=== PATIENT | male | born 1960 | race African-American/Black ===

== ENCOUNTER 2017-03-13 11:55 | Emergency (ER) | payer BC ==
[~2017-03-13] VITALS: Ht 160 cm; Wt 63.5 kg
[~2017-03-13 11:55] MED LIST: ALBUTEROL SULF8.5 GM INH; LEVAQUIN500 MG ORAL; PREDNISONE20 MG ORAL
[2017-03-13] MEDS ORDERED: SIMVASTATIN20 MG ORAL (12:17)
[2017-03-13] MEDS ORDERED: LISINOPRIL30 MG ORAL (12:17)
[2017-03-13] MEDS ORDERED: AMLODIPINE BESY10 MG ORAL (12:17)
[2017-03-13] MEDS ORDERED: HYDROCHLOROTHIA25 MG ORAL (12:17)
[2017-03-13] MEDS ORDERED: Aspirin Baby 81mg ORAL ONE (12:30)
[2017-03-13 12:49] VITALS: BP 116/69
[2017-03-13 12:58] LABS: BASOPHILS % (AUTO) 1.5 % (0.0-2.0); EOSINOPHILS % (AUTO) 1.5 % (0.0-3.0); LYMPHOCYTES % (AUTO) 31.2 % (20.0-45.0); MEAN CORPUSCULAR HGB CONC 32.2 G/DL (32.0-36.0); MEAN CORPUSCULAR VOLUME 90 FL (80-99); MEAN PLATELET VOLUME 6.5 FL (6.5-10.1); MONOCYTES % (AUTO) 8.8 % (1.0-10.0); PLATELET COUNT 178 K/UL (150-450); RED BLOOD COUNT 4.71 M/UL (4.70-6.10); RED CELL DISTRIBUTION WIDTH 12.5 % (11.6-14.8); WHITE BLOOD COUNT 5.4 K/UL (4.8-10.8)
[2017-03-13 13:07] LABS: INR 0.9 (0.9-1.1); PROTHROMBIN TIME 9.6 SEC (9.30-11.50)
[2017-03-13 13:14] LABS: TROPONIN I < 0.30 ng/mL (<=0.30)
[2017-03-13 13:20] LABS: ALANINE AMINOTRANSFERASE 38 U/L (3-41); ALBUMIN/GLOBULIN RATIO 1.4 (1.0-2.7); ANION GAP 18 (5-15); ASPARTATE AMINO TRANSFERASE 34 U/L (5-40); CALCIUM 9.3 mg/dL (8.6-10.2); CARBON DIOXIDE 25 mEQ/L (20-30); CHLORIDE 96 mEQ/L (98-107); CREATININE 1.3 mg/dL (0.7-1.2); GLOMERULAR FILTRATION RATE > 60 mL/min (>60); HEMOLYSIS 8; POTASSIUM 4.1 mEQ/L (3.4-4.9); SODIUM 139 mEQ/L (135-145); TOTAL PROTEIN 7.7 g/dL (6.6-8.7)
[2017-03-13 13:30] LABS: CKMB < 1.5 ng/mL (< 6.7)
[2017-03-13 13:32] LABS: APPEARANCE,URINE CLEAR; KETONES,URINE NEGATIVE (NEGATIVE); LEUKOCYTE ESTERASE ,URINE NEGATIVE (NEGATIVE); NITRITE,URINE NEGATIVE (NEGATIVE); PH,URINE 5 (4.5-8.0); PROTEIN,URINE NEGATIVE (NEGATIVE); UROBILINOGEN,URINE NORMAL MG/DL (0.0-1.0)
[2017-03-13] MEDS ORDERED: Lidocaine 2% Visc 15ml soln ORAL ONE (14:30)
--- NOTE | 2017-03-13 14:38 | Emergency Room Report ---
History of Present Illness General Chief Complaint: Chest Pain Source: Patient Present Illness HPI This patient complains of mid chest pain for the past few days. He states that the pain has been constant. He denies nausea or vomiting. He denies fever or chills. He denies cough or congestion. He denies abdominal pain. He has no other complaints. Allergies: Coded Allergies: NO KNOWN DRUG ALLERGIES (Unverified Allergy, Unknown, 10/26/14) Patient History Past Medical History: see triage record, HTN Social History: Denies: alcohol use, drug use, smoking Reviewed Nursing Documentation: PMH: Agreed, PSxH: Agreed Nursing Documentation-PMH Past Medical History: No History, Except For Hx Hypertension: Yes Review of Systems All Other Systems: negative except mentioned in HPI Physical Exam Vital Signs Date Time Temp Pulse Resp B/P Pulse Ox O2 Delivery O2 Flow Rate FiO2 03/13/17 12:05 98.2 73 14 121/92 99 Room Air Sp02 EP Interpretation: reviewed, normal General Appearance: no apparent distress, alert, GCS 15, non-toxic Head: normocephalic, atraumatic Eyes: bilateral eye PERRL, bilateral eye normal inspection ENT: hearing grossly normal, normal pharynx, no angioedema, normal voice Neck: full range of motion, supple/symm/no masses Respiratory: chest non-tender, lungs clear, normal breath sounds, speaking full sentences Cardiovascular #1: regular rate, rhythm, no edema Gastrointestinal: normal bowel sounds, non tender, soft, non-distended, no guarding, no rebound Rectal: deferred Musculoskeletal: back normal, gait/station normal, normal range of motion, non- tender Neurologic: alert, oriented x3, responsive, motor strength/tone normal, sensory intact, speech normal Psychiatric: judgement/insight normal, memory normal, mood/affect normal, no suicidal/homicidal ideation Skin: normal color, no rash, warm/dry, well hydrated Medical Decision Making Diagnostic Impression: Primary Impression: Chest pain ER Course This patient has nonspecific chest pain. Given the length of symptoms, this workup is very reassuring with negative cardiac enzymes, normal EKG, and normal chest x-ray. The patient is low risk and his symptoms are atypical for acute coronary syndrome. I have very low suspicion for PE, aortic dissection or pneumothorax based on history/physical, laboratory and radiologic workup. I will go ahead and treat the patient for acid reflux. The patient was given close return precautions and followup instructions. Labs Test 03/13/17 12:35 03/13/17 12:56 White Blood Count 5.4 K/UL (4.8-10.8) Red Blood Count 4.71 M/UL (4.70-6.10) Hemoglobin 13.7 G/DL (14.2-18.0) Hematocrit 42.5 % (42.0-52.0) Mean Corpuscular Volume 90 FL (80-99) Mean Corpuscular Hemoglobin 29.0 PG (27.0-31.0) Mean Corpuscular Hemoglobin Concent 32.2 G/DL (32.0-36.0) Red Cell Distribution Width 12.5 % (11.6-14.8) Platelet Count 178 K/UL (150-450) Mean Platelet Volume 6.5 FL (6.5-10.1) Neutrophils (%) (Auto) 57.0 % (45.0-75.0) Lymphocytes (%) (Auto) 31.2 % (20.0-45.0) Monocytes (%) (Auto) 8.8 % (1.0-10.0) Eosinophils (%) (Auto) 1.5 % (0.0-3.0) Basophils (%) (Auto) 1.5 % (0.0-2.0) Prothrombin Time 9.6 SEC (9.30-11.50) Prothromb Time International Ratio 0.9 (0.9-1.1) Activated Partial Thromboplast Time 26 SEC (23-33) Sodium Level 139 mEQ/L (135-145) Potassium Level 4.1 mEQ/L (3.4-4.9) Chloride Level 96 mEQ/L (98-107) Carbon Dioxide Level 25 mEQ/L (20-30) Anion Gap 18 (5-15) Blood Urea Nitrogen 28 mg/dL (7-23) Creatinine 1.3 mg/dL (0.7-1.2) Estimat Glomerular Filtration Rate > 60 mL/min (>60) Glucose Level 81 mg/dL (74-106) Calcium Level 9.3 mg/dL (8.6-10.2) Total Bilirubin 0.3 mg/dL (0.0-1.2) Aspartate Amino Transf (AST/SGOT) 34 U/L (5-40) Alanine Aminotransferase (ALT/SGPT) 38 U/L (3-41) Alkaline Phosphatase 47 U/L (40-129) Total Creatine Kinase 69 U/L (38-174) Creatine Kinase MB < 1.5 ng/mL (< 6.7) Creatine Kinase MB Relative Index 2.1 Troponin I < 0.30 ng/mL (<=0.30) Total Protein 7.7 g/dL (6.6-8.7) Albumin 4.5 g/dL (3.5-5.2) Globulin 3.2 g/dL Albumin/Globulin Ratio 1.4 (1.0-2.7) Urine Color Pale yellow Urine Appearance Clear Urine pH 5 (4.5-8.0) Urine Specific [place] 1.015 (1.005-1.035) Urine Protein Negative (NEGATIVE) Urine Glucose (UA) Negative (NEGATIVE) Urine Ketones Negative (NEGATIVE) Urine Occult Blood Negative (NEGATIVE) Urine Nitrite Negative (NEGATIVE) Urine Bilirubin Negative (NEGATIVE) Urine Urobilinogen Normal MG/DL (0.0-1.0) Urine Leukocyte Esterase Negative (NEGATIVE) Urine Opiates Screen Negative (NEGATIVE) Urine Barbiturates Screen Negative (NEGATIVE) Phencyclidine (PCP) Screen Negative (NEGATIVE) Urine Amphetamines Screen Negative (NEGATIVE) Urine Benzodiazepines Screen Negative (NEGATIVE) Urine Cocaine Screen Negative (NEGATIVE) Urine Marijuana (THC) Screen Negative (NEGATIVE) EKG Diagnostic Results Rate: normal Rhythm: NSR ST Segments: no acute changes ASA given to the pt in ED: Yes Rhythm Strip Diag. Results EP Interpretation: yes Rate: 60's Rhythm: NSR, no PVC's, no ectopy Chest X-Ray Diagnostic Results Chest X-Ray Ordered: Yes # of Views/Limited/Complete: 1 View Interpretation: no consolidation, no effusion, no pneumothorax, no acute cardiopulmonary disease Indication: Chest Pain Impression: No acute disease Date Electronically Signed: Mar 13, 2017 Time Electronically Signed: 14:38 Interpreting ER Physician: Fabricio Last Vital Signs Date Time Temp Pulse Resp B/P Pulse Ox O2 Delivery O2 Flow Rate FiO2 03/13/17 12:49 98.2 69 12 116/69 100 Room Air Status: improved Disposition: HOME, SELF-CARE Condition: Improved Patient Instructions: Nonspecific Chest Pain AFIA ASKEW D.O. Mar 13, 2017 14:38
[2017-03-13 14:39] VITALS: BP 119/97
[2017-03-13] MEDS ORDERED: RANITIDINE HCL150 MG ORAL (14:39)
[2017-03-13 15:00] VITALS: BP 119/97
== END 2017-03-13 15:00 | disposition home or self-care (01) ==
LOC: EMR 12:29
DX: R07.89 Other chest pain (principal); I10 Essential (primary) hypertension
CPT/HCPCS: 36415; 71010; 80053; 80300; 81003; 82550; 82553; 84484; 85025; 85610; 85730; 93005; 96374

== ENCOUNTER 2017-12-18 11:01 | Emergency (ER) | payer BC ==
[~2017-12-18] VITALS: Ht 172.7 cm; Wt 70.3 kg
[~2017-12-18 11:01] MED LIST changes: +AMLODIPINE BESY10 MG ORAL; +HYDROCHLOROTHIA25 MG ORAL; +LISINOPRIL30 MG ORAL; +RANITIDINE HCL150 MG ORAL; +SIMVASTATIN20 MG ORAL
[2017-12-18 11:20] VITALS: BP 132/69
[2017-12-18 11:52] LABS: BASOPHILS % (AUTO) 0.5 % (0.0-2.0); EOSINOPHILS % (AUTO) 1.5 % (0.0-3.0); HEMATOCRIT 43.6 % (42.0-52.0); HEMOGLOBIN 14.2 G/DL (14.2-18.0); LYMPHOCYTES % (AUTO) 22.6 % (20.0-45.0); MEAN CORPUSCULAR VOLUME 87 FL (80-99); MONOCYTES % (AUTO) 7.9 % (1.0-10.0); NEUTROPHILS % (AUTO) 67.5 % (45.0-75.0); PLATELET COUNT 216 K/UL (150-450); RED BLOOD COUNT 5.01 M/UL (4.70-6.10); RED CELL DISTRIBUTION WIDTH 13.2 % (11.6-14.8); WHITE BLOOD COUNT 5.8 K/UL (4.8-10.8)
[2017-12-18 11:54] LABS: APPEARANCE,URINE CLEAR; BILIRUBIN, URINE NEGATIVE (NEGATIVE); COLOR,URINE PALE YELLOW; GLUCOSE, URINE (UA) NEGATIVE (NEGATIVE); KETONES,URINE NEGATIVE (NEGATIVE); LEUKOCYTE ESTERASE ,URINE NEGATIVE (NEGATIVE); NITRITE,URINE NEGATIVE (NEGATIVE); PH,URINE 6 (4.5-8.0); PROTEIN,URINE NEGATIVE (NEGATIVE); UROBILINOGEN,URINE NORMAL MG/DL (0.0-1.0)
[2017-12-18 11:59] LABS: ANION GAP 9 mmol/L (5-15); BLOOD UREA NITROGEN 18 mg/dL (7-18); CALCIUM 9.4 MG/DL (8.5-10.1); CARBON DIOXIDE 29 MMOL/L (21-32); CHLORIDE 104 MMOL/L (98-107); CREATININE 0.9 MG/DL (0.55-1.30); POTASSIUM 3.9 MMOL/L (3.5-5.1); SODIUM 141 MMOL/L (136-145)
[2017-12-18 12:12] LABS: ALANINE AMINOTRANSFERASE 31 U/L (12-78); ALBUMIN 3.9 G/DL (3.4-5.0); ALBUMIN/GLOBULIN RATIO 0.9 (1.0-2.7); ALKALINE PHOSPHATASE < 10 U/L (46-116); ASPARTATE AMINO TRANSFERASE 20 U/L (15-37); BILIRUBIN,TOTAL 0.5 MG/DL (0.2-1.0)
[2017-12-18 12:55] VITALS: BP 132/99
--- NOTE | 2017-12-18 13:22 | Emergency Room Report ---
History of Present Illness General Chief Complaint: Chest Pain Source: Patient Present Illness HPI 57-year-old male, history of hypertension, p/w chest pain for 2 days. Chest pain started while at rest. Localized to substernal area, no radiation to back or other areas, sharp in nature, gradual in onset, 2-3 episodes. no SOB. Denies palpitations, diaphoresis, n/v. Denies fever, chills, cough, abd pain. Denies trauma. Last stress test was 2 years ago which was negative. Denies smoking, no family history of cardiac disease at a young age. Allergies: Coded Allergies: NO KNOWN DRUG ALLERGIES (Unverified Allergy, Unknown, 10/26/14) Patient History Past Medical History: see triage record Past Surgical History: none Pertinent Family History: none Reviewed Nursing Documentation: PMH: Agreed; PSxH: Agreed Nursing Documentation-PMH Hx Hypertension: Yes Review of Systems All Other Systems: negative except mentioned in HPI Physical Exam Vital Signs Date Time Temp Pulse Resp B/P (MAP) Pulse Ox O2 Delivery O2 Flow Rate FiO2 12/18/17 11:14 98.2 67 18 144/84 100 Room Air 98.2 Sp02 EP Interpretation: reviewed, normal General Appearance: normal inspection, well appearing, no apparent distress, alert, GCS 15, non-toxic Head: normocephalic, atraumatic Eyes: bilateral eye normal inspection, bilateral eye PERRL, bilateral eye EOMI ENT: normal ENT inspection, normal pharynx, normal voice, moist mucus membranes Neck: normal inspection, full range of motion, supple Respiratory: normal inspection, lungs clear, normal breath sounds, no respiratory distress, no retraction, no wheezing, speaking full sentences, chest symmetrical Cardiovascular #1: normal inspection, regular rate, rhythm, no edema, normal capillary refill Cardiovascular #2: 2+ radial (R), 2+ radial (L) Gastrointestinal: normal inspection, non tender, soft, non-distended, no guarding Genitourinary: no CVA tenderness Musculoskeletal: normal inspection, back normal, normal range of motion, non- tender Neurologic: normal inspection, alert, oriented x3, responsive, motor strength/ tone normal, sensory intact, normal gait, speech normal Psychiatric: normal inspection, judgement/insight normal, memory normal Skin: normal inspection, normal color, no rash, warm/dry, well hydrated, normal turgor Medical Decision Making Diagnostic Impression: Primary Impression: Chest pain ER Course 57-year-old male with chest pain Currently states chest pain-free DDX: ACS vs. CHF vs. pneumonia vs. gastritis/GERD vs. pneumothorax versus musculoskeletal Plan: IV access, obtain labs including troponin, EKG, CXR Patient took aspirin this morning ER course: Labs: troponin negative Patient remained chest pain free during ED stay. Disposition: Patient will be discharged to home. Strict precautions discussed with patient on when to emergently return to the ED : this includes worsening/severe chest pain, palpitations, shortness of breath, syncopal episodes, fever or chills, which may indicate severe illness. Patient verbalized understanding. Patient instructed to follow up with their PMD within the next 2 days. Patient also instructed to follow up with a lockstitch sleeve maker within 2 days for possible outpatient stress test. Patient agrees with plan. Please note that this Emergency Department Report was dictated using Portal Solutionsemployment law specialist technology software, occasionally this can lead to erroneous entry secondary to interpretation by the dictation equipment. EKG Diagnostic Results EP Interpretation: Yes Rate: normal Rhythm: NSR ST Segments: No acute changes ASA given to patient: y Rhythm Strip EP Interpretation: Yes Rate: 60 Rhythm: NSR, no PVCs, no ectopy Chest X-ray CXR: Ordered: Yes 1 view Indication: Chest pain EP interpretation: Yes Interpretation: No consolidation, no effusion, no PTX, no acute cardiopulmonary disease Impression: No acute disease Electronically signed by Meaghan Shaver MD Last Vital Signs Date Time Temp Pulse Resp B/P (MAP) Pulse Ox O2 Delivery O2 Flow Rate FiO2 12/18/17 12:55 98.2 69 18 132/99 98 Room Air 98.2 Disposition: HOME, SELF-CARE Condition: Improved Referrals: NOT CHOSEN IPA/,REFERRING (PCP) Patient Instructions: Nonspecific Chest Pain Additional Instructions: PLEASE SEE YOUR DOCTOR IN 1 WEEK Meaghan Shaver M.D. Dec 18, 2017 13:22
--- NOTE | 2017-12-18 15:51 | Diagnostic Imaging Report ---
Indication: Chest pain Technique: One view of the chest Comparison: 03/13/2017 Findings: Lungs and pleural spaces are clear. Heart size is normal. No significant interim change Impression: No acute process
--- NOTE | 2017-12-21 19:28 | Cardiology Report ---
APPROVED REPORT EKG Measurement Heart [id number] Normal sinus rhythm ST elevation, probably due to early repolarization Borderline ECG
== END 2017-12-18 12:55 | disposition home or self-care (01) ==
LOC: EMR 11:35
DX: R07.9 Chest pain, unspecified (principal); I10 Essential (primary) hypertension
CPT/HCPCS: 36415; 71045; 80053; 81003; 83880; 84484; 85025; 93005; 99283

== ENCOUNTER 2018-03-04 10:50 | Emergency (ER) | payer BC ==
[~2018-03-04] VITALS: Ht 170.2 cm; Wt 66.7 kg
[2018-03-04 11:39] VITALS: BP 118/77
[2018-03-04] MEDS ORDERED: Isovue-300 100ml vial INJ PRN (11:45)
[2018-03-04] MEDS ORDERED: Clindamycin 600mg 50 ML IVPB ONE (11:45)
[2018-03-04 12:46] LABS: BASOPHILS % (AUTO) 0.8 % (0.0-2.0); EOSINOPHILS % (AUTO) 2.2 % (0.0-3.0); HEMATOCRIT 36.9 % (42.0-52.0); HEMOGLOBIN 12.5 G/DL (14.2-18.0); LYMPHOCYTES % (AUTO) 21.1 % (20.0-45.0); MEAN CORPUSCULAR VOLUME 87 FL (80-99); MONOCYTES % (AUTO) 9.1 % (1.0-10.0); NEUTROPHILS % (AUTO) 66.7 % (45.0-75.0); PLATELET COUNT 205 K/UL (150-450); RED BLOOD COUNT 4.24 M/UL (4.70-6.10); RED CELL DISTRIBUTION WIDTH 12.5 % (11.6-14.8); WHITE BLOOD COUNT 5.9 K/UL (4.8-10.8)
[2018-03-04 13:10] LABS: ANION GAP 5 mmol/L (5-15); BLOOD UREA NITROGEN 21 mg/dL (7-18); CALCIUM 9.8 MG/DL (8.5-10.1); CARBON DIOXIDE 29 MMOL/L (21-32); CHLORIDE 105 MMOL/L (98-107); CREATININE 0.9 MG/DL (0.55-1.30); POTASSIUM 3.7 MMOL/L (3.5-5.1); SODIUM 138 MMOL/L (136-145)
--- NOTE | 2018-03-04 13:25 | Emergency Room Report ---
History of Present Illness General Chief Complaint: Skin Rash/Abscess Source: Patient (GABRIELLA ASKEWJolie Eric D.O.) Present Illness HPI This patient states that he noticed this morning when he woke up his right cheek was swollen. He admits that he has very bad cavities and dental issues. Denies pain. He denies fever or chills. He denies headache or neck pain. He has no other complaints. (AZARAFIA Eric D.O.) Allergies: Coded Allergies: NO KNOWN DRUG ALLERGIES (Unverified Allergy, Unknown, 10/26/14) Patient History Past Medical History: see triage record, HTN, other - HLP Social History: Denies: smoking, alcohol use, drug use Reviewed Nursing Documentation: PMH: Agreed; PSxH: Agreed (TARABusterAFIA D.O. ) Nursing Documentation-PMH Past Medical History: No History, Except For Hx Hypertension: Yes (AFIA ASKEW D.O.) Review of Systems All Other Systems: negative except mentioned in HPI (AFIA ASKEW D.O.) Physical Exam Vital Signs Date Time Temp Pulse Resp B/P (MAP) Pulse Ox O2 Delivery O2 Flow Rate FiO2 03/04/18 10:58 87.1 83 16 118/77 97 Room Air 87.1 Sp02 EP Interpretation: reviewed, normal General Appearance: no apparent distress, alert, GCS 15, non-toxic Head: normocephalic, atraumatic Eyes: bilateral eye normal inspection, bilateral eye PERRL ENT: hearing grossly normal, normal pharynx, no angioedema, normal voice, uvula midline, other - R. cheek w/ a quarter sized area of swelling. No fluctuance palpated. Neck: full range of motion, supple/symm/no masses Respiratory: chest non-tender, lungs clear, normal breath sounds, speaking full sentences Cardiovascular #1: regular rate, rhythm, no edema Gastrointestinal: normal bowel sounds, non tender, soft, non-distended, no guarding, no rebound Rectal: deferred Musculoskeletal: back normal, gait/station normal, normal range of motion, non- tender Neurologic: alert, oriented x3, responsive, motor strength/tone normal, sensory intact, speech normal Psychiatric: judgement/insight normal, memory normal, mood/affect normal, no suicidal/homicidal ideation Skin: normal color, no rash, warm/dry, well hydrated (AFIA ASKEW D.O.) Medical Decision Making PA Attestation Dr. Askew is my supervising Physician whom patient management has been discussed with. (Edd MalikASamantha) Diagnostic Impression: Primary Impression: Cellulitis of buccal space of mouth Additional Impression: Periodontal disease Laboratory Tests Test 03/04/18 11:30 White Blood Count 5.9 K/UL (4.8-10.8) Red Blood Count 4.24 M/UL (4.70-6.10) L Hemoglobin 12.5 G/DL (14.2-18.0) L Hematocrit 36.9 % (42.0-52.0) L Mean Corpuscular Volume 87 FL (80-99) Mean Corpuscular Hemoglobin 29.6 PG (27.0-31.0) Mean Corpuscular Hemoglobin Concent 34.0 G/DL (32.0-36.0) Red Cell Distribution Width 12.5 % (11.6-14.8) Platelet Count 205 K/UL (150-450) Mean Platelet Volume 6.8 FL (6.5-10.1) Neutrophils (%) (Auto) 66.7 % (45.0-75.0) Lymphocytes (%) (Auto) 21.1 % (20.0-45.0) Monocytes (%) (Auto) 9.1 % (1.0-10.0) Eosinophils (%) (Auto) 2.2 % (0.0-3.0) Basophils (%) (Auto) 0.8 % (0.0-2.0) Sodium Level 138 MMOL/L (136-145) Potassium Level 3.7 MMOL/L (3.5-5.1) Chloride Level 105 MMOL/L (98-107) Carbon Dioxide Level 29 MMOL/L (21-32) Anion Gap 5 mmol/L (5-15) Blood Urea Nitrogen 21 mg/dL (7-18) H Creatinine 0.9 MG/DL (0.55-1.30) Estimate Glomerular Filtration Rate > 60 mL/min (>60) Glucose Level 111 MG/DL (74-106) H Calcium Level 9.8 MG/DL (8.5-10.1) (AFIA ASKEW D.O.) ER Course Patient signed out to me by Dr. Askew. Agree with hx and physical exam. Pt. presents to the ED c/o swelling on right side of cheek. Patient reports history of similar symptoms several months ago that resolved spontaneously without treatment. Reports has not seen dentist recently. Ddx considered but are not limited to cellulitis, abscess, gingivitis, infection , malignancy. Vital signs: are WNL, pt. is afebrile ER COURSE: Reviewed patient lives, no patient WBC's, rest of labs unremarkable. IV clindamycin provide the patient in ER. patient resting comfortably in the, in no acute pain, no acute distress. Maxillofacial CT with contrast performed, Results show no abscess, periodontal disease. Patient OK for outpatient treatment, followup with PCP and dentist. States will report to dentist tomorrow. Copy of report provide to patient. List of dental clinics provided to patient, instructed to followup tomorrow. Follow-up with dentist. follow up with PCP for further treatment and referral. Discuss referral to ENT. DISCHARGE: Rx provided for Clindamycin x7days, take full course of abx. At this time pt is stable for d/c to home. Patient is resting comfortably, in no acute distress, nontoxic appearing, talking without difficulty. Patient to take medications as instructed Will provide with patient care instructions and any necessary prescriptions. Care plan and follow-up instructions provided. Patient instructed to follow-up with primary care provider in 2-3 days. Patient questions asked and answered. Patient reports understanding and agreement to treatment plan. ER precautions given. Patient instructed to return to ER immediately for any new or worsening of symptoms including but not limited to increasing SOB, persistent fever, chest pain, intractable vomiting. - Please note that this Emergency Department Report was dictated using Single Touch Systemskitchen mechanic technology software, occasionally this can lead to erroneous entry secondary to interpretation by the dictation equipment. Labs Test 03/04/18 11:30 White Blood Count 5.9 K/UL (4.8-10.8) Red Blood Count 4.24 M/UL (4.70-6.10) Hemoglobin 12.5 G/DL (14.2-18.0) Hematocrit 36.9 % (42.0-52.0) Mean Corpuscular Volume 87 FL (80-99) Mean Corpuscular Hemoglobin 29.6 PG (27.0-31.0) Mean Corpuscular Hemoglobin Concent 34.0 G/DL (32.0-36.0) Red Cell Distribution Width 12.5 % (11.6-14.8) Platelet Count 205 K/UL (150-450) Mean Platelet Volume 6.8 FL (6.5-10.1) Neutrophils (%) (Auto) 66.7 % (45.0-75.0) Lymphocytes (%) (Auto) 21.1 % (20.0-45.0) Monocytes (%) (Auto) 9.1 % (1.0-10.0) Eosinophils (%) (Auto) 2.2 % (0.0-3.0) Basophils (%) (Auto) 0.8 % (0.0-2.0) Sodium Level 138 MMOL/L (136-145) Potassium Level 3.7 MMOL/L (3.5-5.1) Chloride Level 105 MMOL/L (98-107) Carbon Dioxide Level 29 MMOL/L (21-32) Anion Gap 5 mmol/L (5-15) Blood Urea Nitrogen 21 mg/dL (7-18) Creatinine 0.9 MG/DL (0.55-1.30) Estimat Glomerular Filtration Rate > 60 mL/min (>60) Glucose Level 111 MG/DL (74-106) Calcium Level 9.8 MG/DL (8.5-10.1) (Edd Malik P.A.) CT/MRI/US Diagnostic Results CT/MRI/US Diagnostic Results : Imaging Test Ordered: CT max/facial: (AFIA ASKEW D.O.) CT/MRI/US Diagnostic Results : Imaging Test Ordered: CT maxillofacial CT with contrast Impression Right lateral buccal region soft tissue edema. Given the clinical history, most likely on the basis of cellulitis. 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 Request referral to ENT. Followup with dentist in 1-2 days. Take medications as directed. Take full course of abx. Patient questions asked and answered. ER precautions given, patient instructed to return to ER immediately for any new or worsening of symptoms. AFIA ASKEW D.O. Mar 04, 2018 13:25 Edd Malik Mar 04, 2018 13:39
[2018-03-04 14:25] VITALS: BP 115/76
--- NOTE | 2018-03-04 14:26 | Diagnostic Imaging Report ---
Indication: Right-sided jaw swelling and inflammation Technique: IV administration nonionic contrast. Spiral acquisitions obtained through the Multiplanar reconstructions were generated. Total dose length product 664.83 mGycm. CTDIvol(s) 28.19 mGy. Radiation dose was minimized using automated exposure control Comparison: none Findings: There is edema of the subcutaneous fat and likely of the superficial musculature superficial to the anterior mandible and maxilla on the right. No rim enhancement or fluid collection to suggest abscess demonstrated. There is extensive dental and periodontal disease. There is evidence of multiple prior tooth extractions. There is extensive destruction mandibular and maxillary alveolar ridges. Considerable lucency is seen surrounding the roots of multiple teeth of both the maxilla and the mandible. Multiple dental caries are demonstrated. 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 No cervical mass or adenopathy. The facial soft tissues are unremarkable. The sinuses are clear. Included intracranial structures are unremarkable Impression: Right lateral buccal region soft tissue edema. Given the clinical history, most likely on the basis of cellulitis. 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
[2018-03-04] MEDS ORDERED: CLEOCIN HCL150 MG PO (14:39)
[2018-03-04 14:55] VITALS: BP 115/76
== END 2018-03-04 14:56 | disposition home or self-care (01) ==
LOC: EMR 11:31
DX: K12.2 Cellulitis and abscess of mouth (principal); K05.6 Periodontal disease, unspecified; I10 Essential (primary) hypertension
CPT/HCPCS: 36415; 70487; 80048; 85025; 96365; 99284; Q9967; 96374; 96375; S0077

== ENCOUNTER 2019-07-24 11:17 | Emergency (ER) | payer BC ==
[~2019-07-24] VITALS: Ht 170.2 cm; Wt 63.5 kg
[~2019-07-24 11:17] MED LIST changes: +CLEOCIN HCL150 MG PO
[2019-07-24 11:36] VITALS: BP 145/86
--- NOTE | 2019-07-24 11:37 | NUR ---
ED Nurse Note: Patient walked in to ER from home due to chronic back pain 07/07 which has been on going for a year. Patient alert and oriented x4 and ambulatory. Skin clean and intact. Calm and cooperative. No acute distress noted at this moment.
--- NOTE | 2019-07-24 11:42 | NUR ---
ED Nurse Note: pt ambulated to bathroom to provide urine. steady but weak gait noted.
[2019-07-24] MEDS: Ketorolac 60mg Inj IM ONE ×2 (11:50→11:54)
--- NOTE | 2019-07-24 11:54 | NUR ---
ED Nurse Note: pt refused medication due to fear to needle. ERMD made aware.
--- NOTE | 2019-07-24 11:59 | NUR ---
ED Nurse Note: pt went to CT scan in stable condition.
--- NOTE | 2019-07-24 12:00 | NUR ---
ED Nurse Note: Toradol 60mg wasted with LUCY Valle.
[2019-07-24 12:06] LABS: APPEARANCE,URINE CLEAR; BILIRUBIN, URINE NEGATIVE (NEGATIVE); COLOR,URINE PALE YELLOW; GLUCOSE, URINE (UA) NEGATIVE (NEGATIVE); KETONES,URINE NEGATIVE (NEGATIVE); LEUKOCYTE ESTERASE ,URINE NEGATIVE (NEGATIVE); NITRITE,URINE NEGATIVE (NEGATIVE); PH,URINE 6 (4.5-8.0); PROTEIN,URINE NEGATIVE (NEGATIVE); UROBILINOGEN,URINE NORMAL MG/DL (0.0-1.0)
--- NOTE | 2019-07-24 12:09 | NUR ---
ED Nurse Note: pt came back from CT in stable condition.
--- NOTE | 2019-07-24 12:37 | Diagnostic Imaging Report ---
EXAM: CT Lumbar Spine Without Intravenous Contrast CLINICAL HISTORY: PAIN TECHNIQUE: Axial computed tomography images of the lumbar spine without intravenous contrast. CTDI is 12.8 mGy and DLP is 483.4 mGy-cm. One or more of the following dose reduction techniques were used: automated exposure control, adjustment of the mA and or kV according to patient size, use of iterative reconstruction technique. COMPARISON: No relevant prior studies available. FINDINGS: Vertebrae: No acute fracture or malalignment. Degenerative changes. Discs spinal canal neural foramina: Degenerative changes with disc bulges-protrusions Soft tissues: Unremarkable. Adrenals: Right adrenal adenoma, 2.3 cm. Stomach and bowel: Colonic diverticula. IMPRESSION: No acute fracture or malalignment.
[2019-07-24] MEDS ORDERED: IBUPROFEN600 MG ORAL (13:20)
[2019-07-24] MEDS ORDERED: CYCLOBENZAPRINE10 MG ORAL (13:20)
[2019-07-24 13:36] VITALS: BP 136/78
--- NOTE | 2019-07-24 13:37 | NUR ---
ED Nurse Note: Pt cleared by health care Provider for discharge. DC instructions/prescription was given and explained to pt and verbalized understanding of teachings. All medical deviecs such as ID band removed. Pt is AAO x4, ambulatory and left with all personal belongings.
--- NOTE | 2019-07-25 21:16 | Emergency Room Report ---
History of Present Illness General Chief Complaint: Back Pain-No Injury Source: Medical Record Present Illness HPI Patient presented for low back pain. No fever. No recent trauma. Works in [employer] department. Denies radicular symptoms. Denies changes with flexion or extension. Allergies: Coded Allergies: NO KNOWN DRUG ALLERGIES (Unverified Allergy, Unknown, 10/26/14) Patient History Past Medical History: see triage record Reviewed Nursing Documentation: PMH: Agreed; PSxH: Agreed Nursing Documentation-PMH Past Medical History: No History, Except For Hx Hypertension: Yes Review of Systems All Other Systems: negative except mentioned in HPI Physical Exam Vital Signs Date Time Temp Pulse Resp B/P (MAP) Pulse Ox O2 Delivery O2 Flow Rate FiO2 07/24/19 11:24 98.2 77 18 145/86 (105) 97 Room Air General Appearance: well appearing, no apparent distress, alert, GCS 15, non- toxic Head: normocephalic, atraumatic ENT: hearing grossly normal, normal voice Neck: full range of motion, supple Respiratory: chest non-tender, lungs clear, no respiratory distress, speaking full sentences Musculoskeletal: normal inspection, back normal Neurologic: normal inspection, alert, oriented x3, responsive, normal gait Psychiatric: normal inspection, mood/affect normal Skin: no rash Medical Decision Making Diagnostic Impression: Primary Impression: Back pain Additional Impression: Adenoma Labs Test 07/24/19 12:00 Urine Color Pale yellow Urine Appearance Clear Urine pH 6 (4.5-8.0) Urine Specific [place] 1.015 (1.005-1.035) Urine Protein Negative (NEGATIVE) Urine Glucose (UA) Negative (NEGATIVE) Urine Ketones Negative (NEGATIVE) Urine Blood Negative (NEGATIVE) Urine Nitrite Negative (NEGATIVE) Urine Bilirubin Negative (NEGATIVE) Urine Urobilinogen Normal MG/DL (0.0-1.0) Urine Leukocyte Esterase Negative (NEGATIVE) Urine Opiates Screen Negative (NEGATIVE) Urine Barbiturates Screen Negative (NEGATIVE) Phencyclidine (PCP) Screen Negative (NEGATIVE) Urine Amphetamines Screen Negative (NEGATIVE) Urine Benzodiazepines Screen Negative (NEGATIVE) Urine Cocaine Screen Negative (NEGATIVE) Urine Marijuana (THC) Screen Negative (NEGATIVE) Last Vital Signs Date Time Temp Pulse Resp B/P (MAP) Pulse Ox O2 Delivery O2 Flow Rate FiO2 07/24/19 13:36 98.0 80 18 136/78 97 Room Air Status: improved Disposition: HOME, SELF-CARE Condition: Stable Scripts Cyclobenzaprine Hcl* (FLEXERIL*) 10 Mg Tablet 10 MG ORAL THREE TIMES A DAY, #20 TAB Prov: Abelardo Rivas MD 07/24/19 Ibuprofen* (MOTRIN*) 600 Mg Tablet 600 MG ORAL Q8H PRN for For Pain, #30 TAB 0 Refills Prov: Abelardo Rivas MD 07/24/19 Departure Forms: Return to Work Return to Work in (Days): 3 Patient Instructions: Back Pain, Adult Abelardo Rivas MD Jul 25, 2019 21:16
== END 2019-07-24 13:37 | disposition home or self-care (01) ==
LOC: EMR 12:19
DX: M54.5 Low back pain (principal); D36.9 Benign neoplasm, unspecified site; I10 Essential (primary) hypertension
CPT/HCPCS: 72131; 80307; 81003; 99284

== ENCOUNTER 2019-12-31 15:55 | Emergency (ER) | payer BC ==
[~2019-12-31] VITALS: Ht 170.2 cm; Wt 68.0 kg
[~2019-12-31 15:55] MED LIST changes: +CYCLOBENZAPRINE10 MG ORAL; +IBUPROFEN600 MG ORAL
[2019-12-31 16:15] VITALS: BP 148/87
--- NOTE | 2019-12-31 16:15 | NUR ---
ER Nurse Note: Patient walked in to ER c/o flu like symptoms, stated works at [email or web address] and communicates with a lot of peoples, AAO x4, VSS at this time. Per pt had fever at home, pt's temp 98.1 at triage.
--- NOTE | 2019-12-31 16:40 | Emergency Room Report ---
History of Present Illness General Chief Complaint: Flu Like Symptoms Source: Patient Present Illness HPI 59-year-old male with history of hypertension currently controlled medication here complaining of 3 days of shortness of breath and body aches as well as feeling feverish. 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 Denies abdominal pain, nausea vomiting diarrhea. Denies cough at this time. Reports that he is an asthmatic and every time that he gets short of breath he has the sensation that he wants to cough. Oxygenation within normal limit. Patient appears to be afebrile. Sitting comfortably and in no respiratory distress. Denies any recent travel. Denies tobacco smoke or drug use Allergies: Coded Allergies: NO KNOWN DRUG ALLERGIES (Unverified Allergy, Unknown, 10/26/14) COVID-19 Screening Contact w/high risk pt: Yes Recent Travel to affected area: No Experienced COVID-19 symptoms?: Yes COVID-19 symptoms experienced: Fever (T>100.4F or >38C), Runny Nose, Flu-Like Symptoms Patient History Past Medical History: see triage record Past Surgical History: none Pertinent Family History: none Immunizations: UTD Reviewed Nursing Documentation: PMH: Agreed; PSxH: Agreed Nursing Documentation-PMH Hx Hypertension: Yes Hx Asthma: Yes Review of Systems All Other Systems: negative except mentioned in HPI Physical Exam Vital Signs Date Time Temp Pulse Resp B/P (MAP) Pulse Ox O2 Delivery O2 Flow Rate FiO2 12/31/19 16:05 98.1 71 20 148/87 (107) 98 Room Air Sp02 EP Interpretation: reviewed, normal General Appearance: no apparent distress, alert, GCS 15, non-toxic Head: normocephalic, atraumatic Eyes: bilateral eye normal inspection, bilateral eye PERRL ENT: hearing grossly normal, normal pharynx, no angioedema, normal voice Neck: full range of motion, supple/symm/no masses Respiratory: chest non-tender, lungs clear, normal breath sounds, no rhonchi, no wheezing, speaking full sentences Cardiovascular #1: regular rate, rhythm, no edema, no murmur Gastrointestinal: normal bowel sounds, non tender, soft, non-distended, no guarding, no rebound Rectal: deferred Genitourinary: no CVA tenderness Musculoskeletal: back normal Neurologic: alert, motor strength/tone normal, oriented x3, sensory intact, responsive, speech normal Psychiatric: normal inspection Skin: no rash Lymphatic: no adenopathy Medical Decision Making PA Attestation All diagnoses and treatment plans were reviewed and discussed with my supervising physician Dr. Zepeda Diagnostic Impression: Primary Impression: URI (upper respiratory infection) ER Course 59-year-old male with history of hypertension currently controlled medication here complaining of 3 days of shortness of breath and body aches as well as feeling feverish. 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 Denies abdominal pain, nausea vomiting diarrhea. Denies cough at this time. Reports that he is an asthmatic and every time that he gets short of breath he has the sensation that he wants to cough. Oxygenation within normal limit. Patient appears to be afebrile. Sitting comfortably and in no respiratory distress. Denies any recent travel. Denies tobacco smoke or drug use Ddx considered but are not limited to: Coronavirus, bronchitis, asthma exacerbation, strep pharyngitis, URI, tonsillitis, peritonsillar abscess, influneza Vital signs: are WNL, pt. is afebrile H&PE are most consistent with: URI most likely secondary to covid 19 ORDERS: Chest x-ray, albuterol, guaifenesin, azithromycin, Tamiflu ED INTERVENTIONS: None required at this time. DISCHARGE: At this time pt. is stable for d/c to home. Will provide printed patient care instructions, and any necessary prescriptions. Care plan and follow up instructions have been discussed with the patient prior to discharge. Take medication as directed, follow-up with your primary doctor, you need to stay home for self quarantine due to Covid 19 precautions for 14 days Chest X-Ray Diagnostic Results Chest X-Ray Diagnostic Results : Chest X-Ray Ordered: Yes # of Views/Limited/Complete: 1 View Indication: Shortness of Breath EP Interpretation: Yes DUNIA Xray: Interpretation reviewed, by supervising MD, and agrees with findings. Interpretation: no consolidation, no effusion, no pneumothorax Impression: No acute disease Electronically Signed by: Orquidea Liu PA-C Last Vital Signs Date Time Temp Pulse Resp B/P (MAP) Pulse Ox O2 Delivery O2 Flow Rate FiO2 12/31/19 16:05 98.1 71 20 148/87 (107) 98 Room Air Disposition: HOME, SELF-CARE Condition: Stable Scripts Oseltamivir Phosphate (Tamiflu) 75 Mg Capsule 75 MG ORAL TWICE A DAY for 5 Days, #10 CAP Prov: Orquidea Valentino 12/31/19 Guaifenesin* (GUAIFENESIN*) 100 Mg/5 Ml Liquid 15 ML ORAL Q8H, #120 ML 0 Refills Prov: Orquidea Valentino 12/31/19 Albuterol Sulfate (VENTOLIN HFA) 18 Gm Hfa.aer.ad 2 PUFFS INH EVERY 6 HOURS, #18 GM 0 Refills Prov: Orquidea Valentino 12/31/19 Azithromycin* (ZITHROMAX*) 250 Mg Tablet 250 MG ORAL DAILY, #6 TAB 0 Refills Take two tables once daily for 1 day, then one tablet once daily for 4 days. Prov: Orquidea Valentino 12/31/19 Patient Instructions: Upper Respiratory Infection, Adult, [id number] Additional Instructions: Take medication as directed, follow-up with your primary doctor, you need to stay home for self quarantine due to Covid 19 precautions for 14 days Orquidea Valentino Dec 31, 2019 16:40
[2019-12-31] MEDS ORDERED: GUAIFENESI100 MG/5 M ORAL (16:41)
[2019-12-31] MEDS ORDERED: VENTOLIN HFA18 GM INH (16:41)
[2019-12-31] MEDS ORDERED: TAMIFLU75 MG ORAL (16:41)
[2019-12-31] MEDS ORDERED: ZITHROMAX250 MG ORAL (16:41)
--- NOTE | 2019-12-31 16:46 | Diagnostic Imaging Report ---
EXAM: XR Chest, 1 View CLINICAL HISTORY: SOB TECHNIQUE: Frontal view of the chest. COMPARISON: Chest radiograph on 12/18/2017 FINDINGS: Hardware: None. Lungs/pleura: Normal. No focal consolidation. No pleural effusion or pneumothorax. Heart/mediastinum: Normal. No cardiomegaly. Soft tissues: Unremarkable. Bones: No acute fracture. Upper abdomen: Normal. IMPRESSION: No acute disease identified.
[2019-12-31 16:55] VITALS: BP 148/78
== END 2019-12-31 16:55 | disposition home or self-care (01) ==
LOC: EMR 16:39
DX: J06.9 Acute upper respiratory infection, unspecified (principal); R50.9 Fever, unspecified; I10 Essential (primary) hypertension
CPT/HCPCS: 71045; 99283